=== PATIENT | male | born 1965 | race Caucasian/White ===

== ENCOUNTER 2017-05-02 23:30 | Emergency (ER) | payer OTHER ==
[2017-05-02 23:38] VITALS: RESP 18; TEMP 98.2; O2SAT 97
[2017-05-02] MEDS ORDERED: HYDROMORPHONE 1 MG/ML SYRINGE IV ONE (23:42)
[2017-05-02] MEDS ORDERED: ONDANSETRON HCL 4 MG/2 ML 4 MG in SODIUM CHLORIDE 0.9% 100 ML 100 ML IV ONE (23:42)
[2017-05-02] MEDS ORDERED: TAMSULOSIN HYDROCHLORIDE 0.4 MG CAP PO ONE (23:42)
[2017-05-02] MEDS ORDERED: ONDANSETRON HCL 4 MG/2 ML SOL IV ONE (23:43)
[2017-05-02] MEDS ORDERED: TAMSULOSIN HYDROCHLORIDE 0.4 MG CAP ONE (23:45)
[2017-05-02] MEDS ORDERED: ONDANSETRON HCL 4 MG/2 ML SOL ONE (23:45)
[2017-05-02] MEDS ORDERED: HYDROMORPHONE HCL 2 MG/ML SOL ONE (23:45)
[2017-05-03 00:14] VITALS: BP 135/96; PULSE 82
== END 2017-05-03 00:03 | disposition home or self-care (01) | DRG 694 ==
LOC: ED 23:30
DX: N20.0 Calculus of kidney (principal)
CPT/HCPCS: 99284; J1170; J2405

== ENCOUNTER 2017-07-03 12:53 | Emergency (ER) | payer OTHER ==
[2017-07-03 13:31] VITALS: RESP 16
[2017-07-03 14:09] VITALS: BP 128/74; PULSE 88; TEMP 98; O2SAT 99
== END 2017-07-03 14:07 | disposition home or self-care (01) | DRG 552 ==
LOC: ED 12:53
DX: M54.5 Low back pain (principal); V43.52XA Car driver injured in collision with other type car in traffic accident, initial encounter
CPT/HCPCS: 72120; 99282